=== PATIENT | male | born 1960 | race Caucasian/White ===

== ENCOUNTER 2018-10-22 21:51 | Observation (INO) ==
[2018-10-22] MEDS ORDERED: 0.9 % Sodium Chloride 1,000 ML IVC ONE (22:21)
[2018-10-22] MEDS ORDERED: Clindamycin 600 MG/50 ML 600 MG/50 ML IV.SOLN IVPB ONE (22:21)
[2018-10-22] MEDS ORDERED: Vancomycin 1,000 MG in D5% in Water 250 ML IVPB ONE (22:21)
--- NOTE | 2018-10-22 22:23 | Emergency Department Note ---
Disposition Clinical Impression: Cellulitis, CKD (chronic kidney disease) stage 3, GFR 30-59 ml/min Disposition: Admitted As Inpatient Condition: Fair Referrals: NONE,PCP [Primary Care Provider] - Forms: ED Satisfaction Letter Time of Disposition: 23:27 (heidi [facility]) Lower Extremity Injury HPI - General Chief Complaint: ED Extremity Injury, Lower Stated Complaint: burning sensation to foot Time Seen by Provider: 10/22/18 22:05 Source: patient Mode of arrival: ambulatory Limitations: no limitations Nursing Notes Reviewed: Yes Vital Signs Reviewed: Yes - History of Present Illness HPI Narrative: A she presents emergency room states that his feet just turned this way today this morning feet are red hot swollen and there burning his left foot is the complete foot extending up to but not involving the ankle the right foot is just to the medial aspect near the greater toe area patient states the pain is bad enough that he is unable to bear weight and ambulate he denies fever chills lightheadedness dizziness any chest pain or chest pressure patient states that he is unable tolerate the pain when he tries to get up and move about his sleeping with a heated blanket or having been too close to a heater [place] having his feet tucked up underneath the heater patient states is really not sure what he denies though any knee or hip pain he denies any palpitations cough hemoptysis or sputum production he denies any breakdowns or sores anywhere else on his body. When asked to the patient's family physician is he is unable to provide this to me like to obtain from family Patient tells me that his blood sugars been elevated all day he was in the 3 to 400s today and is result is been able to get his sugars down this is been going on for the past couple of days also he states that he has had no lightheadedness no dizziness no weakness he denies though any symptoms of hypoglycemia he states he is urinating and stooling without any difficulty he states nothing changes when he eats he states he has had very little appetite According to old records the patient is in palliative care but I cannot confirm this at this time. There appears to be some question of the understanding of pale limited care by family as well as the patient. Pt Subjective Complaint: foot injury Injury location: Bilateral foot Onset (ago): unknown Mechanism of Injury: unknown Context: other (Patient states that he awoke this way) Place: home Pain Severity: moderate Pain Scale: 4 Improves with: nothing Worsens with: weight bearing Associated symptoms: Reports: unable to bear weight, other (Burning sensation) - Related Data Home Medications Medication Instructions Recorded Confirmed Allopurinol [Zyloprim 100 MG] 100 mg PO DAILY 03/30/18 10/22/18 Atorvastatin [Lipitor] 10 mg PO HS 03/30/18 10/22/18 LevETIRAcetam [Spritam] 500 mg PO BID 03/30/18 10/22/18 Metoprolol Succinate [Toprol Xl] 25 mg PO DAILY 03/30/18 10/22/18 Omeprazole 20 mg PO DAILY 03/30/18 10/22/18 PHENobarbital [Phenobarbital] 16.2 mg PO HS 03/30/18 10/22/18 Tamsulosin [Flomax] 0.4 mg PO BID 03/30/18 10/22/18 Insulin Degludec [Tresiba 3 ml SQ DAILY 09/16/18 10/22/18 Flextouch U-200] Previous Rx's Medication Instructions Recorded Furosemide [Lasix] 20 mg PO BID #60 tablet 04/05/18 Insulin ASPART [NovoLOG] 4 unit SQ TIDWM #0 04/05/18 Lisinopril [Zestril] 5 mg PO DAILY #30 tablet 04/05/18 Spironolactone [Aldactone] 25 mg PO DAILY #30 tablet 04/05/18 Allergies Allergy/AdvReac Type Severity Reaction Status Date / Time No Known Allergies Allergy Verified 10/22/18 21:58 All systems ED: reviewed and negative except as stated. Review of Systems: As Per HPI Constitutional: Reports: weakness. Denies: fever, chills Eyes: Denies: eye pain, eye discharge ENT ED: Denies: ear pain, throat pain Cardiovascular: Denies: chest pain, palpitations Respiratory: Denies: cough, dyspnea, wheezes Gastrointestinal: Denies: abdominal pain, nausea, vomiting Genitourinary: Denies: urgency, dysuria, frequency Musculoskeletal: Denies: back pain, neck pain, joint swelling Integumentary: Reports: lesions. Denies: rash, abrasion Neurological: Denies: headache, weakness Psychiatric: Denies: anxiety, depression Endocrine: Denies: fatigue, heat or cold intolerance Hematological/Lymphatic: Denies: easy bleeding Allergic/Immunologic: Denies: facial swelling Past Medical History - Past Medical History Medical history: Reports: atrial fibrillation, CHF, diabetes, myocardial infarction, renal disease, seizures, other Surgical history: Reports: non-contributory Psychiatric history: Reports: no psych history - Social History Smoking Status: Former smoker Smokeless Tobacco Status: No Alcohol use: Reports: none Drug use: Reports: none Physical Exam - General Limitations: no limitations General appearance: alert, in no apparent distress, cachectic - Head Head exam: atraumatic, normocephalic, normal inspection - Eye Eye exam: Present: normal appearance, PERRL, EOMI - ENT ENT exam: normal exam, normal oropharynx, mucous membranes moist - Neck Neck exam: Present: normal inspection, full ROM, trachea midline - Chest Chest inspection: Present: normal inspection, symmetric chest wall rise - Respiratory Respiratory exam: Present: normal lung sounds bilaterally - Cardiovascular Cardiovascular exam: Present: regular rate, normal rhythm, normal heart sounds - Abdominal Exam Abdominal exam: Present: soft, Non-Tender, normal bowel sounds, other (Flat scaphoid in appearance) - Expanded Upper Extremity Exam Shoulder exam: Present: normal inspection, full ROM Arm exam: Present: normal inspection, full ROM Elbow exam: Present: normal inspection, full ROM Forearm/Wrist exam: Present: normal inspection, full ROM Hand exam: Present: normal inspection, full ROM Vascular exam: Normal: capillary refill, radial pulse - Expanded Lower Extremity Exam Hip/Pelvis exam: Present: normal inspection (Patient is wearing a pair long he has marked muscle wasting of the lower extremities bilaterally noted with exception to the feet as noted above in the dictation he has neurosensory in for range of motion intact), full ROM Upper leg exam: Present: normal inspection, full ROM Knee exam: Present: normal inspection, full ROM Lower leg exam: Present: normal inspection, full ROM Ankle exam: Present: normal inspection, full ROM Foot/toe exam: Present: normal inspection, full ROM 1 - Absent toes 2 - Proximal to. The foot is erythematous all the way to the ankle joint inclu ding the plantar aspect of the foot including swelling and edema of the fourth and fifth digits which are the only 2 that are present just healed small nodes are noted to the great second and third toe. There is little ulcerations on the tips of the knobs and toes is noted extending onto the plantar aspect of the foot the foot appears to have had a very significantly large blister incorporating the whole dorsal aspect of the foot extending onto the plantar surface but is disrupted of fluid at this time 3 - Large blister formation on the dorsal aspect of the foot somewhat erratic in appearance 1 - Crater ulceration to the great toe 2 - Beefy red erythematous but I do not appreciate a blister at this time 3 - Extension of the blister formation from the dorsal aspect of the foot to the medial aspect of the right foot still fluid contained this time Neurovascular/Tendon exam: Present: other (Sensitive to palpation has little trouble with the 2 point discrimination was able to tell sharp and dull). Absent: motor deficit, sensory deficit, tendon deficit Gait: not tested/not observed - Back Exam Back exam: Present: normal inspection, full ROM - Neurological Exam Neurological exam: Present: alert, oriented X3, CN II-XII intact - Psychiatric Psychiatric exam: Present: normal affect, normal mood - Skin Skin exam: Present: warm, dry, intact, normal color Course Course Narrative: Patient was immediately seen and examined laboratory data was obtained patient was given a dose of IV clindamycin blood cultures and lactic acid were obtained upon evaluation the feet is apparent the patient needs to be hospitalized to receive some treatment for the feet depending on laboratory data will be for final disposition - Reevaluation(s) Reevaluation #1: Call made to Dr. Darling for the cellulitis lower extremities were he needs to have IV anabolic's Ronald have wound care see him tomorrow for evaluation of the lower extremities other management patient received his initial dose of IV antibiotics here in the emergency room, transferred to [facility] for further evaluation Vital Signs Temperature 97.0 F L 10/22/18 21:58 Pulse Rate 70 10/22/18 21:58 Respiratory Rate 18 10/22/18 21:58 Blood Pressure 100/61 10/22/18 21:58 O2 Sat by Pulse Oximetry 99 10/22/18 21:58 Temperature 97.0 F L 10/22/18 21:58 Pulse Rate 70 10/22/18 21:58 Respiratory Rate 18 10/22/18 21:58 Blood Pressure 100/61 10/22/18 21:58 O2 Sat by Pulse Oximetry 99 10/22/18 21:58 Oxygen Delivery Oxygen Delivery Room Air Extremity Injury, Lower - MDM Narrative Medical decision making narrative: Cellulitis abscess burn dermatitis dependent edema with stasis ulceration - Medical Records Medical records reviewed: Yes I reviewed the patient's medical records. - Lab Data Lab results reviewed: Yes I reviewed the patient's lab results. Result diagrams: 10/22/18 22:40 10/22/18 22:40 Lab Results 10/22/18 10/22/18 10/22/18 Range/Units 22:40 22:40 22:40 WBC 4.4 (4.3-11.1) K/mcL RBC 3.16 L (4.19-5.50) M/mcL Hgb 9.9 L (12.9-16.9) g/dL Hct 29.2 L (37.5-50.1) % MCV 92.4 (83.0-100.0) fL MCH 31.3 (28.0-33.3) pg MCHC 33.9 (31.6-35.5) g/dL RDW 16.2 H (11.5-14.5) % Plt Count 85 L (140-400) K/mcL MPV 12.3 (9.4-12.4) fL Immature Gran % 0.0 (0-4) % Seg Neutrophils % 45.6 % Lymphocytes % 41.3 % Monocytes % 8.8 % Eosinophils % 2.7 % Basophils % 1.6 % Neutrophils # 2.0 (1.6-8.9) K/mcL Lymphocytes # 1.8 (0.6-4.6) K/mcL Monocytes # 0.4 (0.0-1.3) K/mcL Eosinophils # 0.1 (0.0-0.6) K/mcL Basophils # 0.1 (0.0-0.2) K/mcL PT 11.7 (9.4-12.1) Seconds INR 1.0 APTT 34.2 (26.0-36.0) Seconds Sodium 136 (136-145) mEq/L Potassium 3.8 (3.5-5.1) mEq/L Chloride 101 (98-107) mEq/L Carbon Dioxide 28 (23-29) mEq/L BUN 58 H (6-20) mg/dL Creatinine 2.34 H (0.70-1.30) mg/dL Est GFR ( Amer) 35 L (> 60) Est GFR (Non-Af Amer) 29 L (> 60) BUN/Creatinine Ratio 25 (6-26) Glucose 170 H (70-105) mg/dL Calculated Osmolality 302 H (280-300) Lactic Acid (0.5-2.2) mmol/L Calcium 9.2 (8.6-10.3) mg/dL Total Bilirubin 0.4 (0.3-1.0) mg/dL AST 19 (13-39) Units/L ALT 44 (7-52) Units/L Alkaline Phosphatase 129 H (34-104) Units/L Serum Total Protein 7.0 (6.4-8.9) g/dL Albumin 4.0 (3.5-5.7) g/dL Globulin 3.0 (2.4-3.5) g/dL Albumin/Globulin Ratio 1.3 (1.1-2.2) 10/22/18 Range/Units 22:40 WBC (4.3-11.1) K/mcL RBC (4.19-5.50) M/mcL Hgb (12.9-16.9) g/dL Hct (37.5-50.1) % MCV (83.0-100.0) fL MCH (28.0-33.3) pg MCHC (31.6-35.5) g/dL RDW (11.5-14.5) % Plt Count (140-400) K/mcL MPV (9.4-12.4) fL Immature Gran % (0-4) % Seg Neutrophils % % Lymphocytes % % Monocytes % % Eosinophils % % Basophils % % Neutrophils # (1.6-8.9) K/mcL Lymphocytes # (0.6-4.6) K/mcL Monocytes # (0.0-1.3) K/mcL Eosinophils # (0.0-0.6) K/mcL Basophils # (0.0-0.2) K/mcL PT (9.4-12.1) Seconds INR APTT (26.0-36.0) Seconds Sodium (136-145) mEq/L Potassium (3.5-5.1) mEq/L Chloride (98-107) mEq/L Carbon Dioxide (23-29) mEq/L BUN (6-20) mg/dL Creatinine (0.70-1.30) mg/dL Est GFR ( Amer) (> 60) Est GFR (Non-Af Amer) (> 60) BUN/Creatinine Ratio (6-26) Glucose (70-105) mg/dL Calculated Osmolality (280-300) Lactic Acid 1.1 (0.5-2.2) mmol/L Calcium (8.6-10.3) mg/dL Total Bilirubin (0.3-1.0) mg/dL AST (13-39) Units/L ALT (7-52) Units/L Alkaline Phosphatase (34-104) Units/L Serum Total Protein (6.4-8.9) g/dL Albumin (3.5-5.7) g/dL Globulin (2.4-3.5) g/dL Albumin/Globulin Ratio (1.1-2.2) - Radiology Data Radiology results reviewed: Yes I reviewed the patient's radiology results. ITS Impressions Chest X-Ray 10/22/18 22:26 IMPRESSION: Multifocal prominent markings, greatest along the left hemidiaphragm. Findings along the left hemidiaphragm may represent scarring and pleural thickening, however pleural effusion with acute focal airspace disease along the diaphragm would be difficult to exclude A few faint nodular densities are noted. These are indeterminate. D/ / Hua Perry / Hua Perry Interpreting Provider: Hua Perry Critical Care Time Critical Care Time: No
[2018-10-22 23:01] LABS: Basophils # 0.1 K/mcL (0.0-0.2); Basophils % 1.6 %; Eosinophils # 0.1 K/mcL (0.0-0.6); Eosinophils % 2.7 %; Hematocrit 29.2 % (37.5-50.1); Lymphocytes # 1.8 K/mcL (0.6-4.6); Lymphocytes % 41.3 %; Mean Corpuscular HGB Conc 33.9 g/dL (31.6-35.5); Mean Corpuscular Hemoglobin 31.3 pg (28.0-33.3); Mean Corpuscular Volume 92.4 fL (83.0-100.0); Mean Platelet Volume 12.3 fL (9.4-12.4); Monocytes # 0.4 K/mcL (0.0-1.3); Monocytes % 8.8 %; Red Blood Count 3.16 M/mcL (4.19-5.50); Red Cell Distribution Width 16.2 % (11.5-14.5); Segmented Neutrophils % 45.6 %
[2018-10-22 23:05] LABS: Prothrombin Time 11.7 Seconds (9.4-12.1)
[2018-10-22 23:06] LABS: Hemoglobin 9.9 g/dL (12.9-16.9); Platelet Count 85 K/mcL (140-400)
[2018-10-22 23:07] LABS: Activated Partial Thrombo Time 34.2 Seconds (26.0-36.0)
[2018-10-22 23:15] LABS: Albumin/Globulin Ratio 1.3 (1.1-2.2); Bilirubin,Total 0.4 mg/dL (0.3-1.0); Calcium 9.2 mg/dL (8.6-10.3); Potassium 3.8 mEq/L (3.5-5.1)
[2018-10-23] MEDS ORDERED: Aminoglycoside Consult 1 EACH MC ONE (01:10)
[2018-10-23] MEDS ORDERED: Vancomycin 1,000 MG in 0.9 % Sodium Chloride 10 ML IVPB SCH (01:42)
[2018-10-23] MEDS ORDERED: D5% in Water 1,000 ML IVC PRN (01:42)
[2018-10-23] MEDS ORDERED: *HR* Dextrose 50 % in Water (Syg) 50 ML SYRINGE IVP PRN (01:42)
[2018-10-23] MEDS ORDERED: Dextrose Gel 15 GM/37.5 ML TUBE PO PRN ×2 (01:42)
[2018-10-23] MEDS ORDERED: Naloxone 0.4 MG/ML INJ IVP PRN (01:42)
[2018-10-23] MEDS: 0.9 % Sodium Chloride 1,000 ML IVC SCH ×2 (03:07→12:51)
[2018-10-23] MEDS: *HR* OxyCODONE Immed Rel 5 MG TABLET PO PRN ×2 (05:08→12:46)
[2018-10-23] MEDS ORDERED: D5 IVPB ONE (06:00)
[2018-10-23] MEDS ORDERED: WATER IVPB ONE (06:00)
[2018-10-23] MEDS ORDERED: CLINDAMYCIN IVPB ONE (06:00)
[2018-10-23] MEDS ORDERED: CLINDAMYCIN IVPB SCH (06:00)
[2018-10-23 07:28] LABS: Basophils % 1.1 %; Eosinophils # 0.1 K/mcL (0.0-0.6); Eosinophils % 2.5 %; Hematocrit 26.6 % (37.5-50.1); Hemoglobin 9.2 g/dL (12.9-16.9); Immature Granulocytes % 0.3 % (0-4); Lymphocytes % 34.8 %; Mean Corpuscular HGB Conc 34.6 g/dL (31.6-35.5); Mean Corpuscular Hemoglobin 31.8 pg (28.0-33.3); Mean Platelet Volume 12.4 fL (9.4-12.4); Monocytes # 0.3 K/mcL (0.0-1.3); Neutrophils # 1.9 K/mcL (1.6-8.9); Red Blood Count 2.89 M/mcL (4.19-5.50); Red Cell Distribution Width 16.1 % (11.5-14.5); Segmented Neutrophils % 52.3 %
[2018-10-23 07:40] LABS: Calcium 8.5 mg/dL (8.6-10.3); Potassium 4.2 mEq/L (3.5-5.1)
[2018-10-23] MEDS ORDERED: INSULIN ASPART 4 UNIT SQ SCH (08:00)
[2018-10-23 08:41] LABS: Lymphocytes # 1.3 K/mcL (0.6-4.6); Platelet Count 73 K/mcL (140-400)
[2018-10-23] MEDS ORDERED: INSULIN DEGLUDEC SQ SCH (09:00)
[2018-10-23] MEDS: Insulin LISPRO 300 UNITS/3 ML VIAL SQ SCH ×3 (09:44→17:20)
[2018-10-23] MEDS: levETIRAcetam 250 MG TABLET PO SCH ×2 (09:44→20:24)
[2018-10-23] MEDS: Furosemide 20 MG TABLET PO SCH ×2 (09:45→17:17)
[2018-10-23] MEDS: Metoprolol XL (24 HR) Succ 25 MG TAB.ER.24H PO SCH (09:46)
[2018-10-23] MEDS: Spironolactone 25 MG TABLET PO SCH (09:46)
[2018-10-23] MEDS ORDERED: Clindamycin 300 MG in D5% in Water 50 ML IVPB SCH (12:00)
[2018-10-23] MEDS: Insulin DETEMIR 100 UNIT/ML X5UNITS SQ SCH (12:44)
--- NOTE | 2018-10-23 13:26 | Internal Med History&Physical ---
Addendum entered and electronically signed by Kb Darling MD 10/24/18 09:55: I have personally performed a face to face evaluation on this patient. I have r eviewed and agree with the care plan. History and Exam by me shows: The patient was evaluated by me yesterday but the note was not complete. This documentation is being completed today for that reason. Patient with no injury and was found to have reddened feet, especially left. He has no feeling because of diabetic neuropathy in both feet. Because of redness at his feet, he was brought to the emergency room and he was treated with vancomycin 1 dose and Cleocin, for cellulitis. He denies fevers chills, injury, etc. However, he has a heating blanket which he uses for his feet and cannot feel the heat on them. 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 He denies fevers chills or sweats or any other injury or spilling coffee or other hot beverages or foods on his feet. I discussed his care with wound care and they will see him, urgently, on Sunday. He had been seen by them once in the past but he canceled his physician appointment there in any follow-up, healed on his own. The patient is developmentally delayed, went through ninth grade, [place], and [place]. He has worked in the past as a [employer] or what is been on [employer] for years. His medical insight is somewhat limited, as such. He has a pacemaker present since he was 17 or 18 but actually inserted only 3 or 4 years ago (?). He denies heart disease, chest pain, coronary disease, or recent chest symptoms. He smoked in the past but has not smoked for 20 some years. He does not drink alcohol or use marijuana. Patient is again limited in his medical understanding but he has no complaint of chest discomfort, dyspnea, orthopnea, breathing problems, palpitations, nausea or vomiting, constipation or diarrhea, other changes in bowel habits, heartburn, difficulty with urination, kidney problems or kidney stones, fevers chills or sweats, rash or itching, seizures, headache or lightheadedness, heat or cold intolerance, blood problems or anemia, or other new complaints, except as mentio heena above. Review of systems is otherwise negative.. Examination: (Except as mentioned above): General: In no apparent distress, alert and oriented 3. Head: Atraumatic and normocephalic. Eyes: Extraocular muscles are intact, pupils equal round and reactive to light and accommodation. Sclerae anicteric. Ears: External ears are normal to inspection and hearing is grossly normal. Nose: Patent without lesion noted. Mouth: No intraoral lesions seen. The patient is edentulous. Neck: Supple with trachea midline. There is no thyromegaly but his right thyroid is prominent and I believe he has a nodule of about 2 x 3 cm or adenopathy and carotids are 2+ without bruit heard. Respiratory: No use of accessory muscles. Lungs are clear throughout. Normal airflow. Pacemaker is present at the left upper chest. Cardiovascular: Regular rate and rhythm without murmur appreciated. Abdomen: Bowel sounds are normal. No hepatosplenomegaly masses or tenderness. Obese and therefore difficult to palpate deeply. Extremities: No cyanosis clubbing or edema. Neurological: A and O 3. Cranial nerves II through XII are intact. No focal deficits and no abnormal movements or postures. Skin: Warm and non-diaphoretic with seemingly normal capillary refill. The dorsum, only, of his left foot is erythematous about 4[address] ankle. He has very loose superficial epidermis consistent with a confluent bulla. And a 3 x 0.5 cm pillow at the dorsum of the right foot. There is no significant calf tenderness edema or erythema proximal to the area described on the left foot. I feel this does not represent cellulitis but an insensate burn. Breasts, pelvic and rectal: Not examined. BECCA will be requested or arterial Doppler. (This was obtained yesterday and was normal.) Laboratory was unremarkable. I believe the patient has an insensate burn, as above. We will treat this with Silvadene topically, a week's worth of Keflex, and have him follow up with wound care and his primary care physician. Because of suspected right thyroid nodule, will ask that he have an outpatient thyroid ultrasound and follow with his primary care physician. Original Note: Date of Encounter: 10/23/18 Time of Encounter: 13:24 Assessment and Plan (1) CKD (chronic kidney disease) stage 3, GFR 30-59 ml/min Current visit: Yes Status: Chronic monitor labs. stable avoid nephrotoxic agents. (2) Diabetes mellitus Current visit: Yes Status: Acute Will start Levemir. Monitor fingerstick blood sugars. Will adjust as needed. Continue diabetic diet. 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 Monitor for improvement. Likely due to burn. Bilateral lower extremities Qualifiers: Site of cellulitis: extremity Site of cellulitis of extremity: lower extrem ity Laterality: left Qualified Code(s): L03.116 - Cellulitis of left lower limb Internal Medicine - H&P: HPI Admitted From: Emergency Dept Plans for Post Hospital Care: Home History of present illness: Mr. Greer is a 58 year old male here for observation after presented to the emergency room yesterday with complaints of his feet being red, hot and swollen. Patient states he sleeps with a heating pad wrapped in a blanket around his feet. Patient is a diabetic with blood sugars running in the 300s. Denies pain, fever, chills, nausea vomiting or diarrhea. Lives at home with family. Maintaining appetite hydration. Bowels are moving as normal. Past Med Surg Social Fam HX - Past Medical History Medical history: atrial fibrillation, CHF, diabetes, myocardial infarction, renal disease, seizures Additional medical history: STOMACH ULCERS Psychiatric history: no psych history - Past Surgical History Surgical History: non-contributory Additional surgical history: Left great toe, left second toe, right point finger, right middle order - Social History Smoking Status: Former smoker Smokeless Tobacco Status: No Alcohol use: none Drug use: none Internal Medicine - H&P: Meds Allopurinol [Zyloprim 100 MG] 100 mg PO DAILY 03/30/18 [History] Atorvastatin [Lipitor] 10 mg PO HS 03/30/18 [History] LevETIRAcetam [Spritam] 500 mg PO BID 03/30/18 [History] Metoprolol Succinate [Toprol Xl] 25 mg PO DAILY 03/30/18 [History] Omeprazole 20 mg PO DAILY 03/30/18 [History] PHENobarbital [Phenobarbital] 16.2 mg PO HS 03/30/18 [History] Tamsulosin [Flomax] 0.4 mg PO BID 03/30/18 [History] Furosemide [Lasix] 20 mg PO BID #60 tablet 04/05/18 [Rx] Insulin ASPART [NovoLOG] 4 unit SQ TIDWM #0 04/05/18 [Rx] Lisinopril [Zestril] 5 mg PO DAILY #30 tablet 04/05/18 [Rx] Spironolactone [Aldactone] 25 mg PO DAILY #30 tablet 04/05/18 [Rx] Insulin Degludec [Tresiba Flextouch U-200] 3 ml SQ DAILY 09/16/18 [History] Allergy/AdvReac Type Severity Reaction Status Date / Time No Known Allergies Allergy Verified 10/22/18 21:58 All Systems PM: A 10-system review of systems was performed and is negative for pertinent findings except as documented above in the HPI. - Constitutional Constitutional: no chills, no fever(s), no night sweats - EENT Eyes: no change in vision, no discharge, no pain, no photophobia Ears: no ear discharge, no ear pain, no tinnitus Nose, mouth and throat: no dysphagia, no nasal discharge, no neck pain, no sore throat - Cardiovascular Cardiovascular ROS IM: no chest pain, no diaphoresis, no dyspnea, no lightheadedness, no palpitations, no syncope - Respiratory Respiratory: no cough, no dyspnea, no wheezing, no excessive phlegm production - Gastrointestinal Gastrointestinal: no abdominal pain, no diarrhea, no hematemesis, no hematochezia, no melena, no nausea, no vomiting - Musculoskeletal Musculoskeletal ROS IM: no numbness, no tingling - Integumentary Integumentary IM: no rash, no unusual bruising - Neurological Neurological ROS: no confusion, no convulsions, no focal weakness, no numbness, no tingling, no tremor(s) - Hematologic/Lymphatic Hematologic/Lymphatic: no easy bruising - Constitutional Vitals: Temp Pulse Resp BP Pulse Ox 97.7 F 74 17 85/52 100 10/23/18 11:51 10/23/18 11:51 10/23/18 11:51 10/23/18 11:51 10/23/18 11:51 General appearance: Present: cooperative, A&O X 3, pleasant, no acute distress, answers questions appropriately - Head Head exam: Present: atraumatic, normocephalic - Eye Eye exam: Present: PERRL, conjuntiva pink, sclera anicteric Pupils: Present: PERRL - Neck Neck exam general surgery: Present: supple, trachea midline. Absent: lymphadenopathy - Respiratory Respiratory exam: Present: CTAB. Absent: accessory muscle use, rales, rhonchi, wheezes - Cardiovascular Cardiovascular exam: Present: RRR, +S1, +S2. Absent: diastolic murmur, gallop, rubs, systolic murmur - GI/Abdominal GI/Abdominal exam: Present: normal bowel sounds, soft, no peritoneal signs. Absent: distended, tenderness - Extremities Exam Extremities exam: Present: warm, radial pulses palpable and symmetrical. Absent: calf tenderness, cyanotic, pedal edema - Neurological Exam Neurological exam: Present: CN II-XII intact, oriented X3, no focal deficits. Absent: pronater drift, facial droop, speech deficit - Skin Skin exam: Present: dry, intact Additional comments: Right foot blister. Intact. No drainage. Left foot increased redness, appears to be burned. Internal Med - H&P Results - Labs CBC & Chem 7: 10/23/18 07:05 10/23/18 07:05 Labs: Short CBC 10/22/18 10/23/18 Range/Units 22:40 07:05 WBC 4.4 3.6 L (4.3-11.1) K/mcL Hgb 9.9 L 9.2 L (12.9-16.9) g/dL Hct 29.2 L 26.6 L (37.5-50.1) % Plt Count 85 L 73 L (140-400) K/mcL Neutrophils # 2.0 1.9 (1.6-8.9) K/mcL BMP 10/22/18 10/23/18 22:40 07:05 Sodium 136 134 L Potassium 3.8 4.2 Chloride 101 101 Carbon Dioxide 28 28 BUN 58 H 53 H Creatinine 2.34 H 2.14 H Glucose 170 H 363 H Calcium 9.2 8.5 L Liver Function 10/22/18 Range/Units 22:40 Total Bilirubin 0.4 (0.3-1.0) mg/dL AST 19 (13-39) Units/L ALT 44 (7-52) Units/L Alkaline Phosphatase 129 H (34-104) Units/L Albumin 4.0 (3.5-5.7) g/dL - Impressions ITS Impressions Chest X-Ray 10/22/18 22:26 IMPRESSION: Multifocal prominent markings, greatest along the left hemidiaphragm. Findings along the left hemidiaphragm may represent scarring and pleural thickening, however pleural effusion with acute focal airspace disease along the diaphragm would be difficult to exclude A few faint nodular densities are noted. These are indeterminate. D/ / Hua Perry / Hua Perry Interpreting Provider: Hua Perry
[2018-10-23] MEDS: cephALEXin 500 MG CAPSULE PO SCH ×2 (17:17→20:23)
[2018-10-23] MEDS: Silver Sulfadiazine 50 GM TUBE TP SCH (19:57)
[2018-10-23] MEDS ORDERED: *HR* Enoxaparin 40 MG/0.4 ML SYRINGE SQ ONE (20:39)
[2018-10-24] MEDS: *HR* OxyCODONE Immed Rel 5 MG TABLET PO PRN (01:16)
[2018-10-24] MEDS ORDERED: *HR* Enoxaparin 30 MG/0.3 ML SYRINGE SQ SCH ×2 (06:00)
[2018-10-24] MEDS: Metoprolol XL (24 HR) Succ 25 MG TAB.ER.24H PO SCH (07:46)
[2018-10-24] MEDS: Spironolactone 25 MG TABLET PO SCH (07:46)
[2018-10-24 07:55] VITALS: BP 128/61
[2018-10-24] MEDS: levETIRAcetam 250 MG TABLET PO SCH (08:11)
[2018-10-24] MEDS: cephALEXin 500 MG CAPSULE PO SCH ×2 (08:12→13:19)
[2018-10-24] MEDS: Insulin LISPRO 300 UNITS/3 ML VIAL SQ SCH ×2 (08:12→12:41)
[2018-10-24] MEDS: Furosemide 20 MG TABLET PO SCH (08:12)
--- NOTE | 2018-10-24 09:22 | Discharge Summary ---
Addendum entered and electronically signed by Kb Darling MD 10/24/18 10:49: I have personally performed a face to face evaluation on this patient. I have r eviewed and agree with the care plan. History and Exam by me shows: Patient is without acute illness or new complaint. He is still eating well and moving his bowels, tolerating his diet well without other symptoms. Discussed care with other providers and/or nursing. Patient has no complaint of chest discomfort, dyspnea, orthopnea, palpitations, nausea or vomiting, constipation or diarrhea, other changes in bowel habits, difficulty with urination, rash or itching, or other new complaints, except as mentioned above. Review of systems is otherwise negative. Examination: (Except as mentioned above): General: In no apparent distress. Alert and oriented 3. Nondiaphoretic. Head: Atraumatic and normocephalic. Respiratory: No use of accessory muscles. Lungs are clear throughout. Normal airflow. Cardiovascular: Regular rate and rhythm without murmur appreciated. Abdomen: Bowel sounds are normal. No hepatosplenomegaly mass or tenderness appreciated. Obese and therefore difficult to palpate deeply. Extremities: No cyanosis clubbing or edema. Skin: Warm and non-diaphoretic with no new lesions noted. Lesions have feet are without change. I feel that this represents a burn and does not look like cellulitis. We will continue as planned with Keflex as a suppressive, 4 week. In addition, he is to see wound care tomorrow and he will be treated with Silvadene, topically. He is to follow with his primary care doc as noted previously. He will have an assessment of his payne as well as a determination of management of his possible thyroid nodule. Original Note: Orders not resulted at time of discharge: Pending orders 10/22/18 22:40 Culture,Blood [BC] Stat 10/24/18 08:56 CBC [Complete Blood Count] [HEME] Routine Date of Encounter: 10/24/18 Time of Encounter: 09:20 - Discharge Diagnosis (1) Cellulitis Priority: Primary Status: Acute Comments: Patient was admitted with blister-type wounds on the dorsal side of bilateral feet. Patient with a history of severe vascular disease. Patient was placed on Keflex and had daily dressing changes with Silvadene cream applied. Patient was evaluated by wound care and has a follow-up appointment with them tomorrow after his discharge from this facility. Patient was educated on his need to attend this appointment tomorrow and states understanding. Arrangements have been made by family for transportation to his appointment. Patient will be discharged with 7 days of Keflex and this to continue daily wound care. Patient has a follow-up with PCP in 1 week Qualifiers: Site of cellulitis: extremity Site of cellulitis of extremity: lower extremity Laterality: left Qualified Code(s): L03.116 - Cellulitis of left lower limb (2) CKD (chronic kidney disease) stage 3, GFR 30-59 ml/min Priority: Secondary Status: Chronic Comments: No acute issues during stay of facility. Patient's last creatinine was 2.14. Patient to continue with home medications and follow-up with PCP (3) Diabetes mellitus Priority: Secondary Status: Chronic Comments: Patient continues with poorly controlled diabetes. Fingersticks have had readings greater than 300. We will continue with current coverage and have patient seen by PCP in 1 week. Qualifiers: Diabetes mellitus type: type 2 Diabetes mellitus detention insulin use: with detention use [facility] complication detail: with chronic kidney disease Chronic kidney disease stage: stage 3 (moderate) Qualified Code(s): E11.22 - Type 2 diabetes mellitus with diabetic chronic kidney disease; N18.3 - Chronic kidney disease, stage 3 (moderate); Z79.4 - vermin exterminator (current) use of insulin Hospital course: Mr. Greer is a 58 year old male admitted for observation after presented from the emergency room yesterday. He had complaints of his feet being red, hot and swollen. Patient states he sleeps with a heating pad wrapped in a blanket around his feet. Patient had what appeared to be blisters to the dorsal side of bilateral feet. Patient's left foot had an extensive blister and most of the dorsal side of the foot. Patient has a history of severe PVD with a history of several toes being able to hear from the left foot. Patient was started on Keflex and evaluated by wound care with recommendations to 4 daily dressing changes and a half Silvadene cream applied to wound bed. Arrangements were made for patient to follow up with wound care as an outpatient with his first appointment being tomorrow afternoon. Patient's family has been made aware of the appointment and agreed to transport patient. Patient is a diabetic with blood sugars running in the 300s, which remains poorly controlled during his stay at this facility. Patient is to continue follow-up with PCP in one week. Patient was noted to have a nodule to the right thyroid. Recommendations is for patient to have an outpatient thyroid ultrasound after evaluation by PCP. Lives at home with family. Discharge discussed with: patient Time spent discussing smoking cessation with patient: 3 to 10 minutes - Time Spent with Patient Total time spent providing and/or coordinating discharge services: Less than 30 minutes - Discharge Medications Home Medications: Allopurinol [Zyloprim 100 MG] 100 mg PO DAILY 03/30/18 [History] Atorvastatin [Lipitor] 10 mg PO HS 03/30/18 [History] LevETIRAcetam [Spritam] 500 mg PO BID 03/30/18 [History] Metoprolol Succinate [Toprol Xl] 25 mg PO DAILY 03/30/18 [History] Omeprazole 20 mg PO DAILY 03/30/18 [History] PHENobarbital [Phenobarbital] 16.2 mg PO HS 03/30/18 [History] Tamsulosin [Flomax] 0.4 mg PO BID 03/30/18 [History] Furosemide [Lasix] 20 mg PO BID #60 tablet 04/05/18 [Rx] Insulin ASPART [NovoLOG] 4 unit SQ TIDWM #0 04/05/18 [Rx] Lisinopril [Zestril] 5 mg PO DAILY #30 tablet 04/05/18 [Rx] Spironolactone [Aldactone] 25 mg PO DAILY #30 tablet 04/05/18 [Rx] Insulin Degludec [Tresiba Flextouch U-200] 3 ml SQ DAILY 09/16/18 [History] Allergies/Adverse Reactions: Allergy/AdvReac Type Severity Reaction Status Date / Time No Known Allergies Allergy Verified 10/22/18 21:58 Date of admission: 10/23/18 01:09 Primary care physician: PCP NONE Consults: 10/23/18 01:42 Consult to Biology Professor [CONS] Routine Reason for SW Consult: dc panning Consult to Wound Care [CONS] Stat Reason for Consult: sal lower extremity blisters on the feet cellulitis vs other etiology ? burn Call Completed: No Discharging clinician: Kb Darling - Constitutional Vitals: Temp Pulse Resp BP Pulse Ox 98.6 F 45 16 128/61 95 10/24/18 07:55 10/24/18 07:55 10/24/18 07:55 10/24/18 07:55 10/24/18 07:55 General appearance: Present: cooperative, A&O X 3, pleasant, no acute distress, answers questions appropriately - Head Head exam: Present: atraumatic, normocephalic - Eye Eye exam: Present: PERRL, conjuntiva pink, sclera anicteric Pupils: Present: PERRL - Neck Neck exam general surgery: Present: supple, trachea midline. Absent: lymphadenopathy - Respiratory Respiratory exam: Present: CTAB. Absent: accessory muscle use, rales, rhonchi, wheezes - Cardiovascular Cardiovascular exam: Present: RRR, +S1, +S2. Absent: diastolic murmur, gallop, rubs, systolic murmur - GI/Abdominal GI/Abdominal exam: Present: normal bowel sounds, soft, no peritoneal signs. Absent: distended, tenderness - Extremities Exam Extremities exam: Present: warm, radial pulses palpable and symmetrical. Absent : calf tenderness, cyanotic, pedal edema Additional comments: Patient has an extensive blister for type wound to the dorsal side of his left foot with no current drainage noted. Patient also has a small blister type wound to the dorsal side of the right foot with blister remaining intact. - Neurological Exam Neurological exam: Present: CN II-XII intact, oriented X3, no focal deficits. Absent: pronater drift, facial droop, speech deficit - Skin Skin exam: Present: dry, intact - Patient Status Disposition: Home Health Service Condition: Fair Functional capacity at discharge: wheelchair bound Overall status at discharge: patient is progressing back to baseline - Discharge Instructions Follow Up With: NONE,PCP [Primary Care Provider] - - Diet and Activity Activity: increase activity as tolerated Diet: diabetic diet, low fat, low cholesterol, low salt diet
[2018-10-24] MEDS: Insulin DETEMIR 100 UNIT/ML X5UNITS SQ SCH (09:43)
[2018-10-24] MEDS: Silver Sulfadiazine 50 GM TUBE TP SCH (09:44)
== END 2018-10-24 13:20 | disposition home health service (06) ==
LOC: INPGRE 21:51 → EMEROOGRE 21:51 → INPGRE 10-23 01:29